=== PATIENT | female | born 1990 | race Asian ===

== ENCOUNTER → 2016-06-25 | Day surgery (SDC) | payer OTHER ==
[~2016-06-25] VITALS: Ht 157.5 cm; Wt 48.9 kg
[~2016-06-25] MED LIST: BACITRACIN PWD 50,000 UNITS VIAL As Ordered ONE; BACITRACIN PWD 50,000 UNITS VIAL IR ONE; BUPIVACAINE HCL 0.5% 30 ML VIAL As Ordered ONE; BUPIVACAINE HCL 0.5% 30 ML VIAL SC ONE; LIDOCAINE 2% INJ 100 MG/5 ML SDV (FOR ANES.) As Ordered ONE; LIDOCAINE 2% MDV 20 ML VIAL As Ordered ONE; LIDOCAINE 2% MDV 20 ML VIAL SC ONE; LR 1,000 ML IV SCH; MIDAZOLAM INJ 2 MG/2 ML VIAL (J2250) As Ordered ONE; NEOSPORIN GU IRRIG 20 ML VIAL As Ordered ONE; NEOSPORIN GU IRRIG 20 ML VIAL IR ONE; PROPOFOL 200 MG/20 ML VIAL As Ordered ONE; dexameTHASONE 4 MG/ML 1ML VIAL (J1100) As Ordered ONE; dexameTHASONE 4 MG/ML 1ML VIAL (J1100) XX ONE; fentaNYL 100 MCG/2 ML INJECTION (J3010) As Ordered ONE
[2016-06-25 12:07] LABS: CONTROL LINE HCG INT CTR LINE PRESENT
[2016-06-25 15:20] VITALS: BP 100/61
--- NOTE | 2016-06-26 08:24 | RO ---
DATE OF PROCEDURE: 06/25/2016 PREOPERATIVE DIAGNOSIS: Synovial cyst inferior to the first metatarsal head of the right foot. POSTOPERATIVE DIAGNOSIS: Synovial cyst inferior to the first metatarsal head of the right foot. PROCEDURE: Excision of soft tissue mass inferior to the first metatarsal right foot. SURGEON: Aleks Brooks DPM [employer]ING OFFICER: None. ANESTHESIA: Local, monitored anesthesia care (MAC). IRRIGATION: Dilute bacitracin, neomycin and polymyxin B solution. HEMOSTASIS: Ankle pneumatic tourniquet at 200 mmHg for 13 minutes. DESCRIPTION OF PROCEDURE: On 06/25/2016, this 25-year-old female was taken from her hospital room to the operating room and placed on the operating room table in a supine position. Following the induction of IV sedation and local and regional anesthesia, the right lower extremity was prepped and draped in the usual aseptic manner. Attention was directed to the patient's right foot, sterile draping was completed, and the ankle pneumatic tourniquet was rapidly inflated and the following procedure was performed. EXCISION OF SOFT TISSUE MASS INFERIOR TO THE FIRST METATARSAL RIGHT FOOT: Attention was directed to the patient's right foot where there was noted to be a previously biopsied site. A semi-elliptical incision was placed around this biopsy site and the incision measured approximately 3 cm in diameter. Dissection was then carried down to the plantar surface of the foot where there was an area of soft tissue swelling ang tumor formation. The plantar medial nerve was identified and retracted in a superior direction. The soft tissue was identified and resected from the surrounding soft tissue. This measured approximately 3 cm in length by 1 cm in thickness. The wound was flushed with copious amounts of dilute bacitracin, neomycin and polymyxin B solution. Attention was directed towards closure where the subcutaneous tissues were coapted and maintained utilizing #4-0 Monocryl in a simple interrupted type fashion. The skin incision was coapted and maintained utilizing #4-0 Prolene in a simple interrupted and horizontal mattress type fashion. Attention was directed towards bandaging where a sterile compressive bandage was applied consisting of Adaptic, 4x4s, 4x4 splints, Grace, Kerlix and Coban. The ankle pneumatic tourniquet was rapidly deflated and instantaneous capillary filling time was noted in digits 1-5 of the patients right foot. The patient having apparently tolerated the surgical procedure well was taken from the operating room (OR) to the recovery room with vital signs stable and the patient afebrile for further monitoring by the anesthesia department. All surgical specimens removed during the operative procedure were sent to pathology for gross and microscopic examination. Postoperative instructions will be given upon discharge.
== END ==
LOC: M SDC 11:10 → EDUNIT# 12:45
PROVIDERS: ATTEND Podiatrist
DX: M71.371 Other bursal cyst, right ankle and foot (principal)
CPT/HCPCS: 28039; 36415; 84703; 88304; 97116; J1100; J2250; J3010

== ENCOUNTER → 2016-12-19 | Outpatient (CLI) | payer OTHER ==
--- NOTE | 2016-12-20 14:38 | ECHO ---
DATE OF STUDY: 12/19/2016 REFERRING PHYSICIAN: FABIAN Andrade INDICATION: Shortness of breath. HEIGHT: 63 inches. WEIGHT: 109 pounds. 2D MEASUREMENTS: Aortic root: 2.6 cm Left atrium: 3.2 cm Ventricular septum: 0.70 cm Posterior wall: 0.72 cm Left ventricle diastole: 4.1 cm LVOT: 2.0 cm Inferior vena cava: 1.8 cm DOPPLER MEASUREMENTS: Aortic valve velocity: 108 cm/s LVOT velocity: 83.5 cm/s LVOT VTI: 17.8 cm Mild mitral regurgitation. Mitral E velocity: 79.5 cm/s Mitral A velocity: 45.9 cm/s Mitral deceleration time 204 milliseconds Very mild tricuspid regurgitation. Estimated right ventricle systolic pressure: 24 mmHg assuming a right atrial pressure of 5 mmHg Pulmonary artery systolic pressure: 6 mmHg by pulmonary acceleration time method MITRAL ANNULAR TISSUE DOPPLER: E prime septal: 10.7 cm/s E prime lateral: 17.0 cm/s DESCRIPTION: Rhythm was sinus. Image quality was good. No pericardial effusion. This was a 2D, M-mode, color flow Doppler, and pulse wave Doppler examination and included mitral annular tissue Doppler. CONCLUSIONS: 1. Normal echocardiogram Doppler. 2. Normal left ventricle (LV) wall thickening. Normal regional LV wall motion and wall thickening. Normal LV systolic and diastolic function. Left ventricular ejection fraction (LVEF) 60% by visual estimate.
== END ==
LOC: M CARPUL 13:51
PROVIDERS: ATTEND Nurse Practitioner Family
DX: R06.00 Dyspnea, unspecified (principal)

== ENCOUNTER → 2017-01-22 | Outpatient (REF) | payer OTHER | LOC: M SFHCLERA 16:31 | PROVIDERS: ATTEND Nurse Practitioner Family | DX: N89.8 Other specified noninflammatory disorders of vagina (principal) ==

== ENCOUNTER → 2017-11-24 | Outpatient (REF) | payer OTHER ==
[2017-11-24 18:10] LABS: CHLAMYDIA DNA AMPLIFICATION NEGATIVE (NEGATIVE); GC DNA AMPLIFICATION NEGATIVE (NEGATIVE)
== END ==
LOC: M SFHCLERA 15:01
DX: R30.0 Dysuria (principal); N89.8 Other specified noninflammatory disorders of vagina